=== PATIENT | male | born 1965 | race Caucasian/White ===

== ENCOUNTER 2018-01-26 03:54 | Emergency (ER) | payer OTHER ==
--- NOTE | 2018-01-26 04:18 | EDM.PDOC ---
ED HPI GENERAL MEDICAL PROBLEM - General Chief Complaint: Laceration Stated Complaint: LAC Time Seen by Provider: 01/26/18 04:11 Source of Information: Reports: Patient History Limitations: Reports: No Limitations - History of Present Illness INITIAL COMMENTS - FREE TEXT/NARRATIVE: Ronal is a 52 yo male who presents to the ER with a laceration to his left wrist. He states he was taking a box blade out of the package and it ended up slipping and stabbing him in the wrist. He states it is a very small cut but continue to bleed. Neurovascular intact. Tetanus given roughly 2 years ago. 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 [No Known Home Meds] 01/26/18 [History] Past Medical History - Past Health History Medical/Surgical History: Denies Medical/Surgical History - Past Surgical History HEENT Surgical History: Reports: Tonsillectomy Musculoskeletal Surgical History: Reports: Arthroscopic Knee, Other (See Below) (hand surgery) Social & Family History - Tobacco Use Smoking Status *Q: Current Every Day Smoker Years of Tobacco use: 30 Packs/Tins Daily: 0.2 - Caffeine Use Caffeine Use: Reports: Soda - Recreational Drug Use Recreational Drug Use: Yes Drug Use in Last 12 Months: Yes Recreational Drug Type: Reports: Methamphetamine Recreational Drug Use Frequency: Not Used In Over 3 Months ED ROS GENERAL - Review of Systems Review Of Systems: ROS reveals no pertinent complaints other than HPI. ED EXAM, SKIN/RASH Exam: See Below Exam Limited By: No Limitations General Appearance: Alert, No Apparent Distress Cardiovascular: Normal Peripheral Pulses Extremities: Normal Range of Motion, Normal Capillary Refill Neurological: No Motor/Sensory Deficits Skin: Wound/Incision (0.5cm superficial laceration to dorsum of left wrist) ED SKIN PROCEDURES - Laceration/Wound Repair Left Dorsal Wrist Lac/Wound length In cm: 0.5 Appearance: Superficial, Linear, Clean Distal NVT: Neuro & Vascular Intact Skin Prep: Chlorhexidine (Hibiciens) Exploration/Debridement/Repair: Wound Explored, In a Bloodless Field, Explored to Base Closed with: Dermabond Tetanus Status Addressed: Yes Complications: No Course - Vital Signs Last Recorded V/S: Last Vital Signs Temp 98.0 F 01/26/18 03:54 Pulse 98 01/26/18 03:54 Resp 18 01/26/18 03:54 BP 120/82 01/26/18 03:54 Pulse Ox 98 01/26/18 03:54 Departure - Departure Time of Disposition: 04:21 Disposition: Home, Self-Care 01 Clinical Impression: Puncture wound - injury - Discharge Information *PRESCRIPTION DRUG MONITORING PROGRAM REVIEWED*: No *COPY OF PRESCRIPTION DRUG MONITORING REPORT IN PATIENT CANDICE: No Instructions: Stitches, Chase, or Adhesive Wound Closure, [id number] Referrals: PCP,None [Primary Care Provider] - Additional Instructions: 1) Keep area clean and dry for 48 hours 2) Do not soak in any liquids 3) If any sign of infection (redness, increased swelling, drainage or warmth) return for reevaluation 4) If any other concerns recommend reevaluation as well 5) Wound was closed with Dermabond, glue adhesive - Problem List & Annotations (1) Puncture wound - injury SNOMED Code(s): 719535931 Code(s): T14.8XXA - OTHER INJURY OF UNSPECIFIED BODY REGION, INITIAL ENCOUNTER Status: Acute Current Visit: Yes - Problem List Review Problem List Initiated/Reviewed/Updated: Yes - Assessment/Plan Plan: Evaluated wound this morning and appeared to be superficial. No suture warranted. Wound was not bleeding during evaluation. elected to close with Dermabond without any complications. Tetanus status addressed and up to date. Will discharge in satisfactory condition.
== END 2018-01-26 04:32 | disposition home or self-care (01) ==
LOC: CC.ED 03:54
DX: S61.532A Puncture wound without foreign body of left wrist, initial encounter (principal); S61.512A Laceration without foreign body of left wrist, initial encounter; F17.210 Nicotine dependence, cigarettes, uncomplicated; W26.8XXA Contact with other sharp object(s), not elsewhere classified, initial encounter
CPT/HCPCS: 12001; 99282

== ENCOUNTER 2018-02-15 12:03 | Emergency (ER) | payer SELFPAY ==
[2018-02-15] MEDS ORDERED: methylPREDNISolone Acetate 80 MG/ML SDV IM ONE (12:37)
[2018-02-15] MEDS ORDERED: Ketorolac 60 MG/2 ML SDV IM ONE (12:37)
[2018-02-15] MEDS ORDERED: Lidocaine 1% 20 ML MDV INJECT ONE (12:37)
[2018-02-15] MEDS ORDERED: cefTRIAXone 1 GM Vial IM ONE (12:37)
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
== END 2018-02-15 13:05 | disposition home or self-care (01) ==
LOC: CC.ED 12:03
DX: J32.9 Chronic sinusitis, unspecified (principal); F17.210 Nicotine dependence, cigarettes, uncomplicated
CPT/HCPCS: 96372; 99283; J0696; J1040; J1885